=== PATIENT | female | born 1955 | race Caucasian/White ===

== ENCOUNTER 2020-10-24 06:00 | Outpatient (RCR) | payer MEDICARE, SELFPAY | END 2020-11-19 23:59 | disposition home or self-care (01) | LOC: MOT 06:00 | PROVIDERS: PCP Nurse Practitioner; Referring Provider Orthopaedic Surgery Hand Surgery; Visit Provider Orthopaedic Surgery Hand Surgery | DX: M79.642 Pain in left hand (principal); G90.512 Complex regional pain syndrome I of left upper limb; M25.512 Pain in left shoulder; G89.29 Other chronic pain; M25.612 Stiffness of left shoulder, not elsewhere classified | CPT/HCPCS: 97110; 97112; 97140; 97166 ==

== ENCOUNTER 2020-11-20 06:00 | Outpatient (RCR) | payer MEDICARE, SELFPAY | END 2020-12-20 23:59 | disposition home or self-care (01) | LOC: MOT 06:00 | PROVIDERS: PCP Nurse Practitioner; Referring Provider Orthopaedic Surgery Hand Surgery; Visit Provider Orthopaedic Surgery Hand Surgery | DX: M79.642 Pain in left hand (principal); G90.512 Complex regional pain syndrome I of left upper limb; M25.512 Pain in left shoulder; M25.612 Stiffness of left shoulder, not elsewhere classified | CPT/HCPCS: 97018; 97110; 97140 ==

== ENCOUNTER 2020-12-21 06:00 | Outpatient (RCR) | payer MEDICARE, SELFPAY | END 2021-01-19 23:59 | disposition home or self-care (01) | LOC: MOT 06:00 | PROVIDERS: PCP Nurse Practitioner; Referring Provider Orthopaedic Surgery Hand Surgery; Visit Provider Orthopaedic Surgery Hand Surgery | DX: G90.512 Complex regional pain syndrome I of left upper limb (principal) | CPT/HCPCS: 97022; 97035; 97110; 97140 ==

== ENCOUNTER 2021-01-20 06:00 | Outpatient (RCR) | payer MEDICARE, SELFPAY | END 2021-02-19 23:59 | disposition home or self-care (01) | LOC: MOT 06:00 | PROVIDERS: PCP Nurse Practitioner; Referring Provider Orthopaedic Surgery Hand Surgery; Visit Provider Orthopaedic Surgery Hand Surgery | DX: G90.512 Complex regional pain syndrome I of left upper limb (principal) | CPT/HCPCS: 97110; 97140 ==

== ENCOUNTER 2022-01-08 06:00 | Outpatient (RCR) | payer MEDICARE, SELFPAY | END 2022-01-19 23:59 | disposition home or self-care (01) | LOC: MOT 06:00 | PROVIDERS: PCP Nurse Practitioner; Referring Provider Family Medicine; Visit Provider Family Medicine | DX: M25.512 Pain in left shoulder (principal) | CPT/HCPCS: 97140; 97166 ==

== ENCOUNTER 2022-01-20 06:00 | Outpatient (RCR) | payer MEDICARE, SELFPAY | END 2022-02-19 23:59 | disposition home or self-care (01) | LOC: MOT 06:00 | PROVIDERS: PCP Nurse Practitioner; Referring Provider Family Medicine; Visit Provider Family Medicine | DX: M25.512 Pain in left shoulder (principal) | CPT/HCPCS: 97110; 97140 ==

== ENCOUNTER → 2022-12-28 12:52 | Outpatient (BNVA) | payer MEDICARE, SELFPAY | PROVIDERS: Visit Provider Emergency Medicine | DX: R58 Hemorrhage, not elsewhere classified (principal); D69.2 Other nonthrombocytopenic purpura | CPT/HCPCS: 85610 ==

== ENCOUNTER 2023-04-22 06:00 | Outpatient (RCR) | payer MEDICARE, SELFPAY | END 2023-05-22 23:59 | disposition home or self-care (01) | LOC: MOT 06:00 | PROVIDERS: PCP Family Medicine; Visit Provider Orthopaedic Surgery | DX: S62.102D Fracture of unspecified carpal bone, left wrist, subsequent encounter for fracture with routine healing (principal); X58.XXXD Exposure to other specified factors, subsequent encounter | CPT/HCPCS: 97018; 97110; 97140; 97166 ==

== ENCOUNTER 2023-05-23 06:00 | Outpatient (RCR) | payer MEDICARE, SELFPAY | END 2023-06-21 23:59 | disposition home or self-care (01) | LOC: MOT 06:00 | PROVIDERS: PCP Family Medicine; Visit Provider Orthopaedic Surgery | DX: S62.102D Fracture of unspecified carpal bone, left wrist, subsequent encounter for fracture with routine healing (principal); X58.XXXD Exposure to other specified factors, subsequent encounter | CPT/HCPCS: 97022; 97110; 97140 ==

== ENCOUNTER 2023-06-22 06:00 | Outpatient (RCR) | payer MEDICARE, SELFPAY | END 2023-07-22 23:59 | disposition home or self-care (01) | LOC: MOT 06:00 | PROVIDERS: PCP Family Medicine; Visit Provider Orthopaedic Surgery | DX: S62.102D Fracture of unspecified carpal bone, left wrist, subsequent encounter for fracture with routine healing (principal); X58.XXXD Exposure to other specified factors, subsequent encounter | CPT/HCPCS: 97018; 97110; 97140 ==